=== PATIENT | male | born 1975 | race Caucasian/White ===

== ENCOUNTER 2017-01-02 02:18 | Emergency (ER) | payer BC ==
[~2017-01-02] VITALS: Ht 170.2 cm; Wt 70.4 kg
[2017-01-02 03:28] LABS: HEMATOCRIT 34.9 % (38.0-50.0); MCH 30.7 PG (29.0-34.0); MCHC 33.8 G/DL (30.0-36.0); MCV 90.9 FL (86-99); MEAN PLAT.VOLUME 10.6 uM^3 (9.0-12.4); PLATELET COUNT 120 K/uL (156-360); RBC DIS.WIDTH-SD 39.7 % (39-53); RED BLOOD COUNT 3.84 M/uL (4.00-5.50)
[2017-01-02 03:41] LABS: CHLORIDE 102 mEq/L (99-109); POTASSIUM 3.5 mEq/L (3.7-5.4); SODIUM 134 mEq/L (136-147)
[2017-01-02 03:42] LABS: GLUCOSE 110 mg/dL (70-99)
[2017-01-02 03:44] LABS: ANION GAP 10 MEQ/L (2-14)
[2017-01-02 03:46] LABS: GFR ESTIMATE (CALCULATED) > 59 mL/min/
[2017-01-02 03:47] LABS: UREA NITROGEN (BUN) 16 mg/dL (9-23)
[2017-01-02 03:50] LABS: TROP-I INTERPRETATION NEGATIVE; TROPONIN-I < 0.01 ng/mL (0.0-0.30)
[2017-01-02 04:00] LABS: EOSINOPHIL (%) 0.8 % (0-5); HEMATOLOGY COMMENT 1 SMEAR COMPATIBLE; INSTRUMENT ABS NEUTROPHIL CT 2.7 K/uL; LYMPHOCYTE COUNT 0.8 K/uL (1.0-2.8); MONOCYTE (%) 12.1 % (3-12); MONOCYTE COUNT 0.5 K/uL (0-0.8); NEUTROPHIL (%) 66.6 % (45-76); NEUTROPHIL COUNT 2.7 K/uL (1.8-6.4); PLAT.SUFFICIENCY DECREASED
[2017-01-02] MEDS ORDERED: KEFLEX500 MG PO (04:55)
[2017-01-02 05:42] VITALS: BP 108/68
== END 2017-01-02 05:50 | disposition home or self-care (01) ==
LOC: EME 02:18
PROVIDERS: Emergency Medicine
DX: L03.116 Cellulitis of left lower limb (principal); R51 Headache; R68.83 Chills (without fever); R53.81 Other malaise; I25.2 Old myocardial infarction; Z95.5 Presence of coronary angioplasty implant and graft
CPT/HCPCS: 80048; 84484; 85025; 93005; 93971; 99281; 99285

== ENCOUNTER 2017-02-04 19:48 | Emergency (ER) | payer BC ==
[~2017-02-04] VITALS: Ht 170.2 cm; Wt 67.6 kg
[~2017-02-04 19:48] MED LIST: KEFLEX500 MG PO
[2017-02-04 20:29] LABS: HEMATOCRIT 39.9 % (38.0-50.0); MCH 30.4 PG (29.0-34.0); MCHC 33.3 G/DL (30.0-36.0); MCV 91.1 FL (86-99); MEAN PLAT.VOLUME 11.4 uM^3 (9.0-12.4); PLATELET COUNT 172 K/uL (156-360); RBC DIS.WIDTH-CV 12.2 % (11.8-14.6); RBC DIS.WIDTH-SD 40.6 % (39-53); RED BLOOD COUNT 4.38 M/uL (4.00-5.50); WHITE BLOOD COUNT 5.9 K/uL (4.1-10.2)
[2017-02-04 20:38] LABS: CHLORIDE 105 mEq/L (99-109); SODIUM 143 mEq/L (136-147)
[2017-02-04 20:39] LABS: GLUCOSE 94 mg/dL (70-99)
[2017-02-04 20:41] LABS: ANION GAP 12 MEQ/L (2-14)
[2017-02-04 20:44] LABS: GFR ESTIMATE (CALCULATED) > 59 mL/min/; UREA NITROGEN (BUN) 18 mg/dL (9-23)
[2017-02-04 20:48] LABS: TROP-I INTERPRETATION NEGATIVE; TROPONIN-I < 0.01 ng/mL (0.0-0.30)
[2017-02-04 23:22] LABS: TROP-I INTERPRETATION NEGATIVE; TROPONIN-I < 0.01 ng/mL (0.0-0.30)
[2017-02-05 00:08] VITALS: BP 116/65
== END 2017-02-05 00:09 | disposition home or self-care (01) ==
LOC: EME 19:48
PROVIDERS: Physician Assistant Medical
DX: R00.2 Palpitations (principal); I25.2 Old myocardial infarction; Z95.5 Presence of coronary angioplasty implant and graft
CPT/HCPCS: 71020; 80048; 84484; 85027; 93005; 99281; 99283